=== PATIENT | male | born 1980 ===

== ENCOUNTER 2018-04-28 12:53 | Emergency (ER) | payer BC ==
[2018-04-28 13:01] VITALS: BP 146/90; PULSE 68; TEMP 98.3; O2SAT 99
--- NOTE | 2018-04-28 13:28 | C.PDOC ---
History Of Present Illness 37 y/o male with PMH of right grade 2 ACL and MCL sprain in December and hyperthyroidism presents to the ED c/o worsening right anterior and medial knee pain. Pt injured his right knee at work in December and followed up with Dr. Lai Giron, who diagnosed him with an ACL and MCL sprain. Pt attends physical therapy 3 times a week and takes ibuprofen for pain, last dose 2 days ago. He has the most difficulty getting down stairs, feeling like his knee "clicks" and may "give out". Pt has not informed his orthopedic doctor or physical therapist about this worsening pain. Denies new injury, fever, chills, SOB, leg swelling, knee redness, foot pain, ankle pain, calf pain or swelling. Time Seen by Provider: 04/28/18 13:09 Chief Complaint (Nursing): Lower Extremity Problem/Injury History Per: Patient History/Exam Limitations: no limitations Onset/Duration Of Symptoms: Gradual Severity: Moderate Pain Scale Rating Of: 6 Past Medical History Reviewed: Historical Data, Nursing Documentation Vital Signs: Last Vital Signs Temp 98.3 F 04/28/18 12:56 Pulse 68 04/28/18 12:56 Resp 18 04/28/18 12:56 BP 146/90 04/28/18 12:56 Pulse Ox 99 04/28/18 13:48 - Medical History PMH: Hyperthyroidism Family History: States: No Known Family Hx - Social History Hx Tobacco Use: No Hx Alcohol Use: No Hx Substance Use: No - Immunization History Hx Tetanus Toxoid Vaccination: No Hx Influenza Vaccination: Yes Hx Pneumococcal Vaccination: No Review Of Systems Constitutional: Negative for: Fever, Chills Cardiovascular: Negative for: Chest Pain Respiratory: Negative for: Shortness of Breath Gastrointestinal: Negative for: Nausea, Vomiting, Abdominal Pain Musculoskeletal: Positive for: Leg Pain (anterior and medial right knee pain). Negative for: Neck Pain, Back Pain Skin: Negative for: Rash, Lesions, Bruising Neurological: Negative for: Weakness, Numbness Physical Exam - Physical Exam Appears: Well, Non-toxic, No Acute Distress, Other (Uncomfortable secondary to knee pain) Lymphatic: No Inguinal Node Tenderness Cardiovascular: Rhythm Regular Respiratory: Normal Breath Sounds Back: Normal Inspection, No Decreased ROM, No Muscle Spasm, No Paraspinal Tenderness Extremity: Normal ROM (right knee), Tenderness (anterior right knee, medial right knee over MCL), No Pedal Edema, No Calf Tenderness, Capillary Refill ( normal right leg), No Deformity, No Other (right knee effusion) Extremity: Right: Normal Color And Temperature (right knee), Normal ROM (right knee) Pulses: Left Dorsalis Pedis: Normal, Right Dorsalis Pedis: Normal Neurological/Psych: Oriented x3, Normal Speech, Normal Cognition, Normal Motor, Normal Sensation Gait: Steady ED Course And Treatment O2 Sat by Pulse Oximetry: 99 Medical Decision Making Medical Decision Makin37 y/o male with PMH of right grade 2 ACL and MCL sprain in December and hyperthyroidism presents to the ED c/o worsening right anterior and medial knee pain. Pt injured his right knee at work in December and followed up with Dr. Lai Giron, who diagnosed him with an ACL and MCL sprain. Pt attends physical therapy 3 times a week and takes ibuprofen for pain, last dose 2 days ago. He has the most difficulty getting down stairs, feeling like his knee "clicks" and may "give out". Pt has not informed his oprthopedic doctor or physical therapist about this worsening pain. Denies fever, chills, leg swelling, knee redness. Physical exam reveals right knee with FROM, tender anteriorly and medially over MCL. Full strength and sensation. No swelling, effusion, redness. Will give 30mg IM Toradol Will prescribe 10mg Toradol PO tid x 10 days Will prescribe 20mg Pepcid PO bid x 10 days Will advise pt to f/u with Dr. Lai Giron Educated pt on importance of following up with orthopedic doctor and physical therapy Educated pt on use of prescribed medication Plan reviewed with pt who understands and agrees. Pt comfortable with discharge home. Disposition - Disposition Referrals: Lai Giron MD [Staff Provider] - Disposition: HOME/ ROUTINE Disposition Time: 13:45 Condition: IMPROVED Additional Instructions: Take 1 tablet Toradol every 8 hours (three times daily) with food Take 1 tablet Pepcid every 12 hours (twice daily) Avoid strenuous activity and heavy lifting Followup with orthopedic doctor within 2 days Continue to attend physical therapy as scheduled Return to ED if symptoms persist, worsen, or if you have a new injury Prescriptions: Famotidine [Pepcid] 20 mg PO BID 10 Days #20 tab Ketorolac Tromethamine [Toradol] 10 mg PO TID 10 Days #30 tab Instructions: Knee Pain Forms: [facility] (Danish), Work Excuse - Clinical Impression Clinical Impression: Knee pain
[2018-04-28 14:06] VITALS: RESP 20
== END 2018-04-28 14:05 | disposition home or self-care (01) ==
LOC: MERGE 12:53 → C.ER 12:53
DX: M25.561 Pain in right knee (principal)
CPT/HCPCS: 96372; 99284; J1885